=== PATIENT | female | born 1960 | race Caucasian/White ===

== ENCOUNTER → 2020-07-19 07:05 | Outpatient (CLI) | payer OTHER, SELFPAY ==
--- NOTE | 2020-07-19 07:10 | DI.US.S_ITS ---
PROCEDURE: US PELVIC COMPLETE INDICATIONS: FIBROIDS TECHNIQUE: Real-time scanning was performed of the pelvic organs, with image documentation. Additional endovaginal scanning was necessary due to incomplete visualization of the adnexal and endometrial structures by transabdominal scanning. COMPARISON: None. FINDINGS: Uterus: Uterus is normal in size at 4.9 x 5.7 x 8.8 cm. The endometrium could not be accurately measured due to shadowing from uterine fibroids. These fibroids are small, and contain internal calcifications resulting in shadowing. Ovaries: Ovaries not seen bilaterally. Other: No pathologic free abdominal or pelvic fluid. IMPRESSION: Ovaries not seen bilaterally. Multiple small uterine fibroids containing internal dystrophic calcifications resulting in shadowing and poor visualization of the endometrial lining. MR scanning could be utilized for more accurate assessment but the calcifications degrade quality of sonographic visualization significantly. Dictated by: Devin Caro M.D. on 07/19/2020 at 8:51 Approved by: Devin Caro M.D. on 07/19/2020 at 8:52
== END ==
PROVIDERS: PCP Family Medicine; Referring Provider Specialist; Visit Provider Specialist
DX: D25.9 Leiomyoma of uterus, unspecified (principal)
CPT/HCPCS: 76830; 76856